=== PATIENT | female | born 1930 | race Caucasian/White ===

== ENCOUNTER 2017-07-01 13:55 | Emergency (ER) | payer MEDICARE, OTHER ==
[~2017-07-01 13:55] MED LIST: ATEN1TAB71 PO; DARV PO; ENOX40P SQ; FERR324T4 PO; KLOR20TA6 PO; LEVO.1 PO
[2017-07-01] MEDS ORDERED: SODIUM CHLORIDE 0.9% FLUSH 10 ML FLUSH IVF PRN (14:15)
[2017-07-01 14:20] VITALS: BP 144/83; PULSE 89; RESP 16; TEMP 98.9; O2SAT 99
[2017-07-01] MEDS ORDERED: ANUC25SU RECTAL (14:20)
[2017-07-01] MEDS ORDERED: FLUT1SPR5 EACH NARE (14:20)
[2017-07-01] MEDS ORDERED: OMEGCAP PO (14:20)
[2017-07-01] MEDS ORDERED: PRED5TAB PO (14:20)
[2017-07-01] MEDS ORDERED: KLOR10TA PO (14:20)
[2017-07-01] MEDS ORDERED: ASPI-516 CHEW (14:20)
[2017-07-01] MEDS ORDERED: METO25TA3 PO (14:20)
[2017-07-01] MEDS ORDERED: D200CAP PO (14:20)
[2017-07-01] MEDS ORDERED: CREON12 PO (14:20)
[2017-07-01] MEDS ORDERED: SYNT175T PO (14:20)
[2017-07-01] MEDS ORDERED: FURO20TA PO (14:20)
[2017-07-01] MEDS ORDERED: RED1CAP4 (14:20)
--- NOTE | 2017-07-01 14:34 | PD ---
HPI . Dizziness Chief Complaint: Dizziness Time Seen by Provider: 14:07 Travel History International Travel<30 days: No Contact w/Intl Traveler<30days: No Traveled to known affect area: No History of Present Illness HPI This patient presents with chief complaint of dizziness. Onset was in mid April. The patient further reports bloody stool since mid April. She states that she has somewhere in the neighborhood of 46 grossly bloody stools every day. She states that she has been diagnosed with probable ulcerative colitis and takes when necessary steroids for this. She started taking steroids back in April hoping that it would cleared up. However, she has continued to have daily bloody stools. She has subsequently developed increasing dizziness associated with shortness of breath. Dizziness is exacerbated by standing and improved by sitting or lying. She states that she has called her doctor but her doctor is out of the office currently. 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 [facility] Past Medical History Arthritis: Yes (osteoarthritis) Blood Disorders: No Cancer: No Genitourinary: No Hypertension: Yes Immune Disorder: No Neurologic: No Psychiatric: No Reproductive: No Respiratory: No Thyroid Disease: Yes ?: Not Past Surgical History Gynecologic Surgery: Yes (hysterectomy 1976) Oral Surgery: Yes (8 teeth removed at once) Social History Alcohol Use: Yes (rare occ) Tobacco Use: No Substance Use: No Allergies-Medications (Allergen,Severity, Reaction): Coded Allergies: hydrocodone (Unverified Allergy, Severe, sweating and n/v, 01/01/17) nabumetone (Unverified Allergy, Severe, itching, 01/01/17) valdecoxib (Unverified Allergy, Mild, Itching, 01/01/17) Reported Meds & Prescriptions Reported Meds & Active Scripts Active Reported D3 Super Strength (Cholecalciferol) 2,000 Unit Cap 2,000 Units PO DAILY [place]-3 Fish Oil/Vitamin (Fish Oil-Cholecalciferol) 1,000-1,000 Mg Cap 1 Cap PO DAILY Red Yeast Rice (Red Yeast Rice Extract) 600 Mg Cap Prednisone 5 Mg Tab 5 Mg PO DIRECTED Flonase Nasal [place] (Fluticasone Nasal [place]) 50 Mcg/Act [place] 50 Mcg EACH NARE BID Aspirin 81 Mg Chew 81 Mg CHEW DAILY Anucort-Hc Supp (Hydrocortisone Acetate Supp) 25 Mg Supp 25 Mg RECTAL BID Klor-Con 10 (Potassium Chloride) 10 Meq Tab 10 Meq PO DAILY Furosemide 20 Mg Tab 20 Mg PO DAILY Creon (Amylase/Lipase/Protease) 12,000-38,000-60,000 Units Cap 1 Cap PO TIDPC Metoprolol Tartrate 25 Mg Tab 25 Mg PO BID Synthroid (Levothyroxine Sodium) 175 Mcg Tab 175 Mcg PO DAILY Review of Systems Except as stated in HPI: all other systems reviewed are Neg General / Constitutional: No: Fever, Chills Eyes: No: Blurred Vision Cardiovascular: No: Chest Pain or Discomfort Respiratory: Positive: Shortness of Breath Gastrointestinal: Positive: Hematochezia, No: Nausea, Vomiting Genitourinary: No: Urgency, Frequency, Dysuria Physical Exam Narrative GENERAL: This is a pleasant, elderly woman who does not appear to be in any distress. SKIN: warm/dry. Normal color and turgor. HEAD: Normocephalic. Atraumatic. EYES: Pupils equal and round. No scleral icterus. No injection or drainage. ENT: No nasal bleeding or discharge. Mucous membranes pink and moist. NECK: Trachea midline. Full range of motion without pain.. CARDIOVASCULAR: Regular rate and rhythm. Heart sounds are normal. RESPIRATORY: No accessory muscle use. Clear to auscultation. Breath sounds equal bilaterally. GASTROINTESTINAL: Abdomen soft. Nontender. Bowel sounds present. Nondistended. RECTAL: Dark, reddish stool in the rectal vault that is Hemoccult positive. No masses palpated. She does have hemorrhoidal tags. They are not actively bleeding. MUSCULOSKELETAL: No obvious deformities. NEUROLOGICAL: Awake and alert. No obvious cranial nerve deficits. Motor grossly within normal limits. Normal speech. PSYCHIATRIC: Appropriate mood and affect; insight and judgment normal. Data Data Last Documented VS Vital Signs Date Time Temp Pulse Resp B/P (MAP) Pulse Ox O2 Delivery O2 Flow Rate FiO2 07/01/17 14:20 98.9 89 16 144/83 (103) 99 Orders Orders Electrocardiogram (07/01/17 14:12) Basic Metabolic Panel (Bmp) (07/01/17 14:12) Complete Blood Count With Diff (07/01/17 14:12) Iv Access Insert/Monitor (07/01/17 14:12) Sodium Chloride 0.9% Flush (Ns Flush) (07/01/17 14:15) Orthostatic Vital Signs (07/01/17 14:13) Type And Screen (07/01/17 14:34) Ct Abd/Pel W/O Iv Contrast (07/01/17 15:43) Labs Laboratory Tests Test 07/01/17 14:56 White Blood Count 9.6 TH/MM3 Red Blood Count 3.16 MIL/MM3 Hemoglobin 10.0 GM/DL Hematocrit 30.9 % Mean Corpuscular Volume 97.8 FL Mean Corpuscular Hemoglobin 31.7 PG Mean Corpuscular Hemoglobin Concent 32.4 % Red Cell Distribution Width 14.8 % Platelet Count 179 TH/MM3 Mean Platelet Volume 9.0 FL Neutrophils (%) (Auto) 61.2 % Lymphocytes (%) (Auto) 25.0 % Monocytes (%) (Auto) 9.7 % Eosinophils (%) (Auto) 3.4 % Basophils (%) (Auto) 0.7 % Neutrophils # (Auto) 5.9 TH/MM3 Lymphocytes # (Auto) 2.4 TH/MM3 Monocytes # (Auto) 0.9 TH/MM3 Eosinophils # (Auto) 0.3 TH/MM3 Basophils # (Auto) 0.1 TH/MM3 CBC Comment DIFF FINAL Differential Comment Blood Urea Nitrogen 21 MG/DL Creatinine 1.40 MG/DL Random Glucose 120 MG/DL Calcium Level 8.2 MG/DL Sodium Level 134 MEQ/L Potassium Level 3.8 MEQ/L Chloride Level 102 MEQ/L Carbon Dioxide Level 23.3 MEQ/L Anion Gap 9 MEQ/L Estimat Glomerular Filtration Rate 36 ML/MIN MDM Medical Decision Making Medical Screen Exam Complete: Yes Emergency Medical Condition: Yes Interpretation(s) EKG shows a sinus rhythm with no acute ischemic changes. Differential Diagnosis Differential diagnosis of dizziness includes but is not limited to vertigo, dehydration, acute blood loss, sepsis, ACS Narrative Course This patient presents with a chief complaint of dizziness and shortness of breath. This is associated with GI blood loss. The GI blood loss has been ongoing for about 2 months. I suspect anemia. BMP Diagram 07/01/17 14:56 Calcium Level 8.2 L I have made her CT without contrast because of her GFR. H&H is still pending at this time. CBC Diagram 07/01/17 14:56 Her care is being turned over to the oncoming provider at [address] She may be stable for discharge as her hemoglobin is 10. Diagnosis Primary Impression: GI bleeding Qualified Codes: K92.2 - Gastrointestinal hemorrhage, unspecified Additional Impression: Dizziness Condition: Stable Emily Duran MD Jul 01, 2017 14:33
[2017-07-01 15:12] LABS: AUTOMATED NEUTROPHIL # 5.9 TH/MM3 (1.8-7.7); BASOPHIL # 0.1 TH/MM3 (0-0.2); BASOPHIL % 0.7 % (0.0-2.0); EOSINOPHIL # 0.3 TH/MM3 (0-0.4); EOSINOPHIL % 3.4 % (0.0-4.0); HEMATOCRIT 30.9 % (35.0-46.0); LYMPHOCYTE # 2.4 TH/MM3 (1.0-4.8); MEAN CELL VOLUME 97.8 FL (80.0-100.0); MEAN CORPUSCULAR HEMOGLOBIN 31.7 PG (27.0-34.0); MEAN CORPUSCULAR HGB CONC 32.4 % (32.0-36.0); MONO % 9.7 % (0.0-8.0); MONOCYTE # 0.9 TH/MM3 (0-0.9); NEUT % 61.2 % (16.0-70.0); PLATELET COUNT 179 TH/MM3 (150-450); RED BLOOD COUNT 3.16 MIL/MM3 (4.00-5.30); RED CELL DISTRIBUTION WIDTH 14.8 % (11.6-17.2); WHITE BLOOD COUNT 9.6 TH/MM3 (4.0-11.0)
[2017-07-01 15:25] LABS: CALCIUM 8.2 MG/DL (8.5-10.1)
[2017-07-01 15:26] LABS: BICARBONATE 23.3 MEQ/L (21.0-32.0)
[2017-07-01 15:29] LABS: CREATININE 1.4 MG/DL (0.50-1.00)
--- NOTE | 2017-07-01 16:41 | RADRPT ---
EXAM DATE/TIME: 07/01/2017 16:22 [place] COMPARISON: No previous studies available for comparison. INDICATIONS : Blood in stool. ORAL CONTRAST: No oral contrast ingested. RADIATION DOSE: 22.19 CTDIvol (mGy) MEDICAL HISTORY : Congestive heart failure. Hypertension. SURGICAL HISTORY : Hysterectomy. ENCOUNTER: Initial ACUITY: 1 day PAIN SCALE: 0/10 LOCATION: pelvis TECHNIQUE: Volumetric scanning of the abdomen and pelvis was performed. Using automated exposure control and ad justment of the mA and/or kV according to patient size, radiation dose was kept as low as reasonably achievable to obtain optimal diagnostic quality images. DICOM format image data is available electro nically for review and comparison. FINDINGS: LOWER LUNGS: Granuloma left lung base. LIVER: Moderate fatty replacement to the liver. Prominent gallbladder SPLEEN: Normal size without lesion. PANCREAS: Within normal limits. KIDNEYS: Normal in size and shape. There is no mass, stone, or hydronephrosis. ADRENAL GLANDS: Within normal limits. VASCULAR: Extensive vascular calcifications are noted. BOWEL/MESENTERY: The stomach, small bowel, and colon demonstrate no acute abnormality. There is no free intraperitone al air or fluid. ABDOMINAL WALL: Within normal limits. RETROPERITONEUM: There is no lymphadenopathy. BLADDER: No wall thickening or mass. REPRODUCTIVE: Within normal limits. INGUINAL: There is no lymphadenopathy or hernia. MUSCULOSKELETAL: Within normal limits for patient age. CONCLUSION: Negative for an acute process. Alli Quinteros MD FACR on July 01, 2017 at 16:36 Board Certified Radiologist. This report was verified electronically.
[2017-07-01 18:54] VITALS: BP 122/53; PULSE 78; RESP 18; O2SAT 95
--- NOTE | 2017-07-01 19:14 | PD ---
Data Data Last Documented VS Vital Signs Date Time Temp Pulse Resp B/P (MAP) Pulse Ox O2 Delivery O2 Flow Rate FiO2 07/01/17 18:54 78 18 122/53 (76) 95 07/01/17 14:20 98.9 Orders Orders Electrocardiogram (07/01/17 14:12) Basic Metabolic Panel (Bmp) (07/01/17 14:12) Complete Blood Count With Diff (07/01/17 14:12) Iv Access Insert/Monitor (07/01/17 14:12) Sodium Chloride 0.9% Flush (Ns Flush) (07/01/17 14:15) Orthostatic Vital Signs (07/01/17 14:13) Type And Screen (07/01/17 14:34) Ct Abd/Pel W/O Iv Contrast (07/01/17 15:43) Labs Laboratory Tests Test 07/01/17 14:56 White Blood Count 9.6 TH/MM3 Red Blood Count 3.16 MIL/MM3 Hemoglobin 10.0 GM/DL Hematocrit 30.9 % Mean Corpuscular Volume 97.8 FL Mean Corpuscular Hemoglobin 31.7 PG Mean Corpuscular Hemoglobin Concent 32.4 % Red Cell Distribution Width 14.8 % Platelet Count 179 TH/MM3 Mean Platelet Volume 9.0 FL Neutrophils (%) (Auto) 61.2 % Lymphocytes (%) (Auto) 25.0 % Monocytes (%) (Auto) 9.7 % Eosinophils (%) (Auto) 3.4 % Basophils (%) (Auto) 0.7 % Neutrophils # (Auto) 5.9 TH/MM3 Lymphocytes # (Auto) 2.4 TH/MM3 Monocytes # (Auto) 0.9 TH/MM3 Eosinophils # (Auto) 0.3 TH/MM3 Basophils # (Auto) 0.1 TH/MM3 CBC Comment DIFF FINAL Differential Comment Blood Urea Nitrogen 21 MG/DL Creatinine 1.40 MG/DL Random Glucose 120 MG/DL Calcium Level 8.2 MG/DL Sodium Level 134 MEQ/L Potassium Level 3.8 MEQ/L Chloride Level 102 MEQ/L Carbon Dioxide Level 23.3 MEQ/L Anion Gap 9 MEQ/L Estimat Glomerular Filtration Rate 36 ML/MIN [facility] Medical Record Reviewed: Yes Supervised Visit with SHIRLEY: No Narrative Course HEMODYNAMICALLY STABLE, H/H =03/18, NO ACTIVE BLEEDING.CAT SCAN NEG FOR ANY FREE AIR/COLITIS/DIVERTIC..... Diagnosis Primary Impression: Dizziness Patient Instructions: General Instructions Disposition: DISCHARGE HOME Condition: Stable Martin Tejada MD Jul 01, 2017 19:14
[2017-07-01 19:47] VITALS: BP 113/59
--- NOTE | 2017-07-02 19:22 | EKG ---
Date Performed: 07/01/2017 Time Performed: 14:18:39 PTAGE: 86 years EKG: Sinus rhythm NORMAL ECG Since the prior tracing, there has been no significant change PREVIOUS TRACING : 04/13/2008 12.54 DOCTOR: Haim Mccain Interpretating Date/Time 07/02/2017 19:20:29
== END 2017-07-01 20:16 | disposition home or self-care (01) ==
LOC: PHED 13:55
DX: K92.2 Gastrointestinal hemorrhage, unspecified (principal); R42 Dizziness and giddiness; R06.02 Shortness of breath; I10 Essential (primary) hypertension; E07.9 Disorder of thyroid, unspecified; M19.90 Unspecified osteoarthritis, unspecified site
CPT/HCPCS: 74176; 80048; 85025; 86850; 86900; 86901; 93005; 99285